=== PATIENT | male | born 1940 | race Caucasian/White ===

== ENCOUNTER 2022-12-03 15:31 | Outpatient (CLI) | payer MEDICARE, BC, SELFPAY | END 2022-12-03 15:32 | disposition home or self-care (01) | PROVIDERS: PCP Internal Medicine; Referring Provider Internal Medicine; Visit Provider Internal Medicine | DX: C61 Malignant neoplasm of prostate (principal) | CPT/HCPCS: 36415; 72195; 84153; 84403 ==

== ENCOUNTER 2022-12-09 08:54 | Outpatient (RCR) | payer MEDICARE, BC, SELFPAY ==
--- NOTE | 2022-12-04 13:59 | URNOTE ---
Received request for prior auth for Marissa ([id number]). Pt has medicare and [place]. Prior auth is not required as services are based on medical necessity and follows medicare guidelines.
[2022-12-09 09:16] VITALS: BP 124/77; PULSE 91; RESP 16; TEMP 36.4; O2SAT 96
== END 2023-06-07 23:59 | disposition home or self-care (01) ==
LOC: CCIC 08:54
PROVIDERS: Referring Provider Internal Medicine; Visit Provider Nurse Practitioner Family
DX: C61 Malignant neoplasm of prostate (principal)
CPT/HCPCS: 96401; J9217